=== PATIENT | female | born 1980 | race American Indian/Alaskan Native ===

== ENCOUNTER 2018-05-17 12:25 | Emergency (ER) | payer MEDICAID, OTHER ==
[2018-05-17 12:53] VITALS: BP 185/103
--- NOTE | 2018-05-17 12:58 | Emergency Department Report ---
Blank Doc - Documentation Documentation: 38 y/o female presents c/o 2 weeks pelvic pain with vaginal bleeding and occas ional lightheadness. no cp or sob. no trauma. no dysuria. pain radiates to left flank Plan labs and Us
[2018-05-17 13:33] LABS: Basophils # (Auto) 0.1 K/mm3 (0.0-0.1); Basophils % (Auto) 1.5 % (0.0-1.8); Eosinophils # (Auto) 0.1 K/mm3 (0.0-0.4); Eosinophils % (Auto) 1.9 % (0.0-4.3); Hematocrit 32.7 % (30.3-42.9); Hemoglobin 10.2 gm/dl (10.1-14.3); Lymphocytes # (Auto) 2.1 K/mm3 (1.2-5.4); Lymphocytes % (Auto) 33.4 % (13.4-35.0); Mean Corpuscular HGB Conc 31 % (30-34); Mean Corpuscular Volume 73 fl (79-97); Monocytes # (Auto) 0.4 K/mm3 (0.0-0.8); Monocytes % (Auto) 5.8 % (0.0-7.3); Platelet Count 400 K/mm3 (140-440)
[2018-05-17 13:48] LABS: INR 0.95 (0.87-1.13)
[2018-05-17 13:54] LABS: Bilirubin,Urine NEG (Negative); Blood,Urine NEG (Negative); Color,Urine Yellow (Yellow); Mucus,Urine FEW /HPF; Protein,Urine <15 mg/dL mg/dL (Negative); Urobilinogen,Urine < 2.0 mg/dL (<2.0)
[2018-05-17 13:56] LABS: HCG Qualitative,Urine Negative (Negative)
[2018-05-17 13:56] LABS: Alanine Aminotransferase 9 units/L (7-56); Albumin 3.6 g/dL (3.9-5); BUN/Creatinine Ratio 8; Blood Urea Nitrogen 5 mg/dL (7-17); Calcium 9.3 mg/dL (8.4-10.2); Hemolysis Index 2
--- NOTE | 2018-05-17 14:23 | Emergency Department Report ---
<RANCHO VARGAS - Last Filed: 05/17/18 14:22> ED Female HPI - General Chief complaint: Vaginal Bleeding Stated complaint: LT SIDE PAIN Time Seen by Provider: 05/17/18 12:55 Source: patient Mode of arrival: Ambulatory Limitations: No Limitations - History of Present Illness Initial comments: Patient is a 38-year-old female who is presenting with vaginal bleeding. Patient states last 2 days it was heavy however is now spotting. Patient states she is has some increased vaginal bleeding for the last several months however for the last 4-5 days she's had some increased pain. Patient's pain is in the left lower quadrant as crampy in nature. Patient states that she has been told that she may have a fibroid as well as ovarian cyst. Patient has a outpatient ultrasound ordered but she was unable to get it secondary to insurance issues. Patient states the pain in the left lower quadrant is 8 out of 10 in severity. Associated Symptoms: vaginal bleeding, abdominal pain. denies: vaginal discharge, nausea/vomiting, fever/chills, loss of appetite, dysuria, hematuria, shortness of breath - Related Data Home Medications Medication Instructions Recorded Confirmed Last Taken Insulin NPH, Human [NovoLIN N] 22 unit SQ QPM 05/31/14 11/27/15 06/18/14 Insulin NPH, Human [NovoLIN N] 42 unit SUB-Q QAM 05/31/14 11/27/15 06/18/14 Insulin Regular, Human [HumuLIN R] 22 unit SUB-Q QAM 05/31/14 11/27/15 06/18/14 Insulin Regular, Human [HumuLIN R] 22 unit SUB-Q QPM 05/31/14 11/27/15 06/18/14 Previous Rx's Medication Instructions Recorded Last Taken Type Valacyclovir HCl [Valtrex] 1,000 mg PO TID #21 tablet 03/10/13 Unknown Rx metroNIDAZOLE [Flagyl] 500 mg PO BID #20 tablet 03/10/13 Unknown Rx Ferrous Sulfate [Feosol 325 MG tab] 325 mg PO BID #60 tablet 06/22/14 Unknown Rx Ibuprofen [Motrin 800 MG tab] 800 mg PO Q8H PRN #30 tablet 06/22/14 Unknown Rx oxyCODONE /ACETAMINOPHEN [Percocet 1 tab PO Q6HR PRN #30 tablet 06/22/14 Unknown Rx 5/325] Labetalol [Normodyne TAB] 400 mg PO BID #60 tablet 06/24/14 Unknown Rx NIFEdipine XL [Procardia Xl] 30 mg PO Q12HR #60 tablet 06/25/14 Unknown Rx Ferrous Sulfate [Feosol 325 MG tab] 325 mg PO BID #60 tablet 12/03/15 Unknown Rx Ibuprofen [Motrin 800 MG tab] 800 mg PO Q6H PRN #30 tablet 12/03/15 Unknown Rx oxyCODONE /ACETAMINOPHEN [Percocet 1 - 2 tab PO Q4H PRN #30 tablet 12/03/15 Unknown Rx 5/325 mg] Docusate Sodium [Colace] 100 mg PO BID PRN #60 capsule 12/05/15 Unknown Rx Labetalol HCl 300 mg PO BID #60 tablet 12/06/15 Unknown Rx Lidocain2.5%/Prilocai2.5% [Emla] 5 gm TP ONCE PRN #1 tube 12/06/15 Unknown Rx Sulfamethoxazole/Trimethoprim 1 each PO BID #6 tablet 05/17/18 Unknown Rx [Bactrim DS TAB] medroxyPROGESTERone ACETATE 10 mg PO DAILY #10 tablet 05/17/18 Unknown Rx [Medroxyprogesterone Acetate] Allergies Allergy/AdvReac Type Severity Reaction Status Date / Time No Known Allergies Allergy Verified 05/31/14 16:02 ED Review of Systems Comment: All other systems reviewed and negative ED Past Medical Hx - Past Medical History Hx Hypertension: Yes ( induced hypertension) Hx Congestive Heart Failure: No Hx Diabetes: Yes Hx Deep Vein Thrombosis: No Hx Renal Disease: No Hx Sickle Cell Disease: No Hx Seizures: No Hx Asthma: Yes Hx COPD: No Hx HIV: No Additional medical history: gallstones - Surgical History Additional Surgical History: c sect - Social History Smoking Status: Never Smoker Substance Use Type: None - Medications Home Medications: Home Medications Medication Instructions Recorded Confirmed Last Taken Type Valacyclovir HCl [Valtrex] 1,000 mg PO TID #21 tablet 03/10/13 11/27/15 Unknown Rx metroNIDAZOLE [Flagyl] 500 mg PO BID #20 tablet 03/10/13 11/27/15 Unknown Rx Insulin NPH, Human [NovoLIN N] 22 unit SQ QPM 05/31/14 11/27/15 06/18/14 History Insulin NPH, Human [NovoLIN N] 42 unit SUB-Q QAM 05/31/14 11/27/15 06/18/14 History Insulin Regular, Human [HumuLIN R] 22 unit SUB-Q QAM 05/31/14 11/27/15 06/18/14 History Insulin Regular, Human [HumuLIN R] 22 unit SUB-Q QPM 05/31/14 11/27/15 06/18/14 History Ferrous Sulfate [Feosol 325 MG tab] 325 mg PO BID #60 tablet 06/22/14 11/27/15 Unknown Rx Ibuprofen [Motrin 800 MG tab] 800 mg PO Q8H PRN #30 tablet 06/22/14 11/27/15 Unknown Rx oxyCODONE /ACETAMINOPHEN [Percocet 1 tab PO Q6HR PRN #30 tablet 06/22/14 11/27/15 Unknown Rx 5/325] Labetalol [Normodyne TAB] 400 mg PO BID #60 tablet 06/24/14 11/27/15 Unknown Rx NIFEdipine XL [Procardia Xl] 30 mg PO Q12HR #60 tablet 06/25/14 11/27/15 Unknown Rx Ferrous Sulfate [Feosol 325 MG tab] 325 mg PO BID #60 tablet 12/03/15 Unknown Rx Ibuprofen [Motrin 800 MG tab] 800 mg PO Q6H PRN #30 tablet 12/03/15 Unknown Rx oxyCODONE /ACETAMINOPHEN [Percocet 1 - 2 tab PO Q4H PRN #30 tablet 12/03/15 Unknown Rx 5/325 mg] Docusate Sodium [Colace] 100 mg PO BID PRN #60 capsule 12/05/15 Unknown Rx Labetalol HCl 300 mg PO BID #60 tablet 12/06/15 Unknown Rx Lidocain2.5%/Prilocai2.5% [Emla] 5 gm TP ONCE PRN #1 tube 12/06/15 Unknown Rx Sulfamethoxazole/Trimethoprim 1 each PO BID #6 tablet 05/17/18 Unknown Rx [Bactrim DS TAB] medroxyPROGESTERone ACETATE 10 mg PO DAILY #10 tablet 05/17/18 Unknown Rx [Medroxyprogesterone Acetate] ED Physical Exam - General Limitations: No Limitations General appearance: alert, in no apparent distress - Head Head exam: Present: atraumatic, normocephalic - Eye Eye exam: Present: normal appearance - ENT ENT exam: Present: mucous membranes moist - Neck Neck exam: Present: normal inspection - Respiratory Respiratory exam: Present: normal lung sounds bilaterally. Absent: respiratory distress, wheezes, rales, rhonchi - Cardiovascular Cardiovascular Exam: Present: regular rate, normal rhythm. Absent: systolic murmur, diastolic murmur, rubs, gallop - GI/Abdominal GI/Abdominal exam: Present: soft, tenderness (tenderness in the left lower quadrant mild), normal bowel sounds. Absent: distended, guarding, rebound, rigid - Extremities Exam Extremities exam: Present: normal inspection - Back Exam Back exam: Present: normal inspection - Neurological Exam Neurological exam: Present: alert, oriented X3 - Psychiatric Psychiatric exam: Present: normal affect, normal mood - Skin Skin exam: Present: warm, dry, intact, normal color. Absent: rash ED Medical Decision Making - Lab Data Result diagrams: 05/17/18 13:24 05/17/18 13:24 Lab Results 05/17/18 05/17/18 05/17/18 Range/Units 13:24 13:24 13:24 WBC 6.4 (4.5-11.0) K/mm3 RBC 4.50 (3.65-5.03) M/mm3 Hgb 10.2 (10.1-14.3) gm/dl Hct 32.7 (30.3-42.9) % MCV 73 L (79-97) fl MCH 23 L (28-32) pg MCHC 31 (30-34) % RDW 17.0 H (13.2-15.2) % Plt Count 400 (140-440) K/mm3 Lymph % (Auto) 33.4 (13.4-35.0) % [place] % (Auto) 5.8 (0.0-7.3) % Eos % (Auto) 1.9 (0.0-4.3) % Baso % (Auto) 1.5 (0.0-1.8) % Lymph # 2.1 (1.2-5.4) K/mm3 [place] # 0.4 (0.0-0.8) K/mm3 Eos # 0.1 (0.0-0.4) K/mm3 Baso # 0.1 (0.0-0.1) K/mm3 Seg Neutrophils % 57.4 (40.0-70.0) % Seg Neutrophils # 3.6 (1.8-7.7) K/mm3 PT 13.3 (12.2-14.9) Sec. INR 0.95 (0.87-1.13) Sodium 138 (137-145) mmol/L Potassium 4.0 (3.6-5.0) mmol/L Chloride 98.9 (98-107) mmol/L Carbon Dioxide 26 (22-30) mmol/L Anion Gap 17 mmol/L BUN 5 L (7-17) mg/dL Creatinine 0.6 L (0.7-1.2) mg/dL Estimated GFR > 60 ml/min BUN/Creatinine Ratio 8 % Glucose 448 H (65-100) mg/dL Calcium 9.3 (8.4-10.2) mg/dL Total Bilirubin 0.40 (0.1-1.2) mg/dL AST 9 (5-40) units/L ALT 9 (7-56) units/L Alkaline Phosphatase 117 (35-129) units/L Total Protein 7.8 (6.3-8.2) g/dL Albumin 3.6 L (3.9-5) g/dL Albumin/Globulin Ratio 0.9 % Urine Color (Yellow) Urine Turbidity (Clear) Urine pH (5.0-7.0) Ur Specific [place] (1.003-1.030) Urine Protein (Negative) mg/dL Urine Glucose (UA) (Negative) mg/dL Urine Ketones (Negative) mg/dL Urine Blood (Negative) Urine Nitrite (Negative) Urine Bilirubin (Negative) Urine Urobilinogen (<2.0) mg/dL Ur Leukocyte Esterase (Negative) Urine WBC (Auto) (0.0-6.0) /HPF Urine RBC (Auto) (0.0-6.0) /HPF U Epithel Cells (Auto) (0-13.0) /HPF Urine Mucus /HPF Urine HCG, Qual (Negative) 05/17/18 Range/Units 13:28 WBC (4.5-11.0) K/mm3 RBC (3.65-5.03) M/mm3 Hgb (10.1-14.3) gm/dl Hct (30.3-42.9) % MCV (79-97) fl MCH (28-32) pg MCHC (30-34) % RDW (13.2-15.2) % Plt Count (140-440) K/mm3 Lymph % (Auto) (13.4-35.0) % [place] % (Auto) (0.0-7.3) % Eos % (Auto) (0.0-4.3) % Baso % (Auto) (0.0-1.8) % Lymph # (1.2-5.4) K/mm3 [place] # (0.0-0.8) K/mm3 Eos # (0.0-0.4) K/mm3 Baso # (0.0-0.1) K/mm3 Seg Neutrophils % (40.0-70.0) % Seg Neutrophils # (1.8-7.7) K/mm3 PT (12.2-14.9) Sec. INR (0.87-1.13) Sodium (137-145) mmol/L Potassium (3.6-5.0) mmol/L Chloride (98-107) mmol/L Carbon Dioxide (22-30) mmol/L Anion Gap mmol/L BUN (7-17) mg/dL Creatinine (0.7-1.2) mg/dL Estimated GFR ml/min BUN/Creatinine Ratio % Glucose (65-100) mg/dL Calcium (8.4-10.2) mg/dL Total Bilirubin (0.1-1.2) mg/dL AST (5-40) units/L ALT (7-56) units/L Alkaline Phosphatase (35-129) units/L Total Protein (6.3-8.2) g/dL Albumin (3.9-5) g/dL Albumin/Globulin Ratio % Urine Color Yellow (Yellow) Urine Turbidity Clear (Clear) Urine pH 6.0 (5.0-7.0) Ur Specific [place] 1.033 H (1.003-1.030) Urine Protein <15 mg/dl (Negative) mg/dL Urine Glucose (UA) >=500 (Negative) mg/dL Urine Ketones Neg (Negative) mg/dL Urine Blood Neg (Negative) Urine Nitrite Pos (Negative) Urine Bilirubin Neg (Negative) Urine Urobilinogen < 2.0 (<2.0) mg/dL Ur Leukocyte Esterase Neg (Negative) Urine WBC (Auto) 3.0 (0.0-6.0) /HPF Urine RBC (Auto) 2.0 (0.0-6.0) /HPF U Epithel Cells (Auto) 1.0 (0-13.0) /HPF Urine Mucus Few /HPF Urine HCG, Qual Negative (Negative) ED Disposition Clinical Impression: Vaginal bleeding, Pelvic pain, Ovarian cyst, right, Dysfunctional uterine bleeding Uterine fibroid Qualifiers: Uterine leiomyoma location: intramural Qualified Code(s): D25.1 - Intramural leiomyoma of uterus Disposition: DC- TO HOME OR SELFCARE Condition: Stable Instructions: Ovarian Cyst (ED), Uterine Fibroids (ED), Urinary Tract Infection in Women (ED) Additional Instructions: Increase fluid intake to 1L to 2L daily. Complete full course of antibiotics as prescribed. Avoid drinking alcohol while taking antibiotics and for 24 hours after completion. Follow-up with a jointer machine to manage ovarian cyst and fibroids from referrals below. Follow up with primary care provider in 2-3 days. Prescriptions: medroxyPROGESTERone ACETATE [Medroxyprogesterone Acetate] 10 mg PO DAILY #10 tablet Sulfamethoxazole/Trimethoprim [Bactrim DS TAB] 1 each PO BID #6 tablet Referrals: [facility] [Primary Care Provider] - 3-5 Days [facility] [Provider Group] - 3-5 Days [facility] [Provider Group] - 3-5 Days [facility] [Provider Group] - 3-5 Days Forms: Work/School Release Form(ED) <ANA ROSA MARTIN - Last Filed: 05/17/18 18:37> ED Review of Systems ROS: Stated complaint: LT SIDE PAIN Other details as noted in HPI ED Course Vital Signs 05/17/18 12:50 Temperature 97.7 F Pulse Rate 82 Respiratory 18 Rate Blood Pressure 185/103 O2 Sat by Pulse 100 Oximetry ED Medical Decision Making - Lab Data Result diagrams: 05/17/18 13:24 05/17/18 13:24 - Radiology Data Radiology results: report reviewed EXAM: US TRANSVAGINAL HISTORY: vag bleeding with lLQ pain TECHNIQUE: Ultrasound pelvis transvaginal PRIORS: None. FINDINGS: Uterus measures 9.4 x 4.3 x 5.7 centimeters There is heterogeneous echotexture. Endometrial stripe is within normal limits 0.4 centimeters. There is a 2.2 by 2.4 x 2.5 centimeter questionable area decreased echogenicity seen at the lower uterine segment anteriorly may reflect a fibroid. Right ovary 2.9 x 1.6 x 3.8 centimeters within the right ovary there is a 3.1 centimeter hypoechoic focus consistent with a cyst with septation. Left ovary is 2.4 x 1.7 x 2.7 centimeters Left ovarian follicular cysts are noted. No free fluid identified in the pelvis. IMPRESSION: Heterogeneous echotexture. Suspect intramural fibroid 2.5 centimeters. Adenomyosis is not excluded. Mildly complex right ovarian cyst 3.1 centimeters - Medical Decision Making Patient was examined by Dr. Vargas and myself. Vitals are normal and patient is in no acute distress. Obtained labs and pelvis transvaginal ultrasound. This sound dictated by radiologist report reviewed by me. Heterogeneous echotexture. Suspect intramural fibroid 2.5 centimeters. Adenomyosis is not excluded. Mildly complex right ovarian cyst 3.1 centimeters. Urinalysis positive for nitrates patient will be treated for acute cystitis. Dysfunctional uterine bleeding. Start progesterone 10 mg by mouth daily 5-7 days. Referral to jointer machine for monitoring of ovarian cyst or fibroid. Start Bactrim DS 1 tablet by mouth twice a day 3 days. Patient informed of results. Plan discussed with patient to dis charge home and treat outpatient. She agrees with ER plan. Patient discharged home in stable condition. Follow up with PCP in 2-3 days. Critical care attestation.: If time is entered above; I have spent that time in minutes in the direct care of this critically ill patient, excluding procedure time. ED Disposition Is pt being admited?: No Does the pt Need Aspirin: No Time of Disposition: 18:04
--- NOTE | 2018-05-17 17:34 | Ultrasound Report ---
FINAL REPORT EXAM: US TRANSVAGINAL HISTORY: vag bleeding with lLQ pain TECHNIQUE: Ultrasound pelvis transvaginal PRIORS: None. FINDINGS: Uterus measures 9.4 x 4.3 x 5.7 centimeters There is heterogeneous echotexture. Endometrial stripe is within normal limits 0.4 centimeters. There is a 2.2 by 2.4 x 2.5 centimeter questionable area decreased echogenicity seen at the lower uterine segment anteriorly may reflect a fibroid. Right ovary 2.9 x 1.6 x 3.8 centimeters within the right ovary there is a 3.1 centimeter hypoechoic f ocus consistent with a cyst with septation. Left ovary is 2.4 x 1.7 x 2.7 centimeters Left ovarian follicular cysts are noted. No free fluid identified in the pelvis. IMPRESSION: Heterogeneous echotexture. Suspect intramural fibroid 2.5 centimeters. Adenomyosis is not excluded. Mildly complex right ovarian cyst 3.1 centimeters
--- NOTE | 2018-05-17 17:36 | Ultrasound Report ---
FINAL REPORT EXAM: US PELVIC COMPLETE HISTORY: vag bleeding with lLQ pain TECHNIQUE: Ultrasound pelvis transabdominal PRIORS: None. FINDINGS: Uterus measures 9.4 x 4.3 x 5.7 centimeters There is heterogeneous echotexture. Endometrial stripe is within normal limits 0.4 centimeters. There is a 2.2 by 2.4 x 2.5 centimeter questionable area decreased echogenicity seen at the lower uterine segment anteriorly may reflect a fibroid. Right ovary 2.9 x 1.6 x 3.8 centimeters within the right ovary there is a 3.1 centimeter hypoechoic f ocus consistent with a cyst with septation. Left ovary is 2.4 x 1.7 x 2.7 centimeters Left ovarian follicular cysts are noted. No free fluid identified in the pelvis. IMPRESSION: Heterogeneous echotexture. Suspect intramural fibroid 2.5 centimeters. Adenomyosis is not excluded. Mildly complex right ovarian cyst 3.1 centimeters
== END 2018-05-17 18:15 | disposition home or self-care (01) ==
LOC: ED 12:25
DX: D25.9 Leiomyoma of uterus, unspecified (principal); N83.201 Unspecified ovarian cyst, right side; I10 Essential (primary) hypertension; E11.9 Type 2 diabetes mellitus without complications; J45.909 Unspecified asthma, uncomplicated; Z79.4 Long term (current) use of insulin
CPT/HCPCS: 36415; 76830; 76856; 80053; 81001; 81025; 85025; 85610